=== PATIENT | male | born 1945 | race Caucasian/White ===

== ENCOUNTER → 2020-07-13 | Day surgery (SDC) | payer MEDICARE, OTHER ==
[~2020-07-13] VITALS: Ht 180 cm; Wt 93.0 kg
[~2020-07-13] MED LIST: ASPIRIN EC81 MG PO; CERTAGEN1 EACH PO; FEOSOL325 MG PO; GLUCOSAMINE CO1 EACH PO; LAXATIVE OF CHOICE; LIPITOR 10MG TA10 MG PO; MOBIC15 MG PO; MOBIC7.5 MG PO; NASACORT16.9 ML; NORCO 5-325 TA1 EACH PO; NORVASC2.5 MG PO; PLAVIX75 MG PO; PRILOSEC20 MG PO; ULTRAM50 MG PO; XARELTO10 MG PO; ZESTORETIC 20-1 EACH PO
== END | disposition home or self-care (01) ==
LOC: FAS 12:43
DX: H26.491 Other secondary cataract, right eye (principal); I10 Essential (primary) hypertension; M19.90 Unspecified osteoarthritis, unspecified site

== ENCOUNTER → 2020-08-10 | Day surgery (SDC) | payer MEDICARE, OTHER ==
[~2020-08-10] VITALS: Ht 180 cm; Wt 93.0 kg
[~2020-08-10] MED LIST changes: -NORCO 5-325 TA1 EACH PO
== END | disposition home or self-care (01) ==
LOC: FAS 13:17
DX: H26.492 Other secondary cataract, left eye (principal); M19.90 Unspecified osteoarthritis, unspecified site; I10 Essential (primary) hypertension; Z79.82 Long term (current) use of aspirin; Z79.02 Long term (current) use of antithrombotics/antiplatelets; Z79.899 Other long term (current) drug therapy

== ENCOUNTER → 2020-11-13 | Day surgery (SDC) | payer MEDICARE, OTHER ==
[~2020-11-13] VITALS: Ht 178 cm; Wt 92.5 kg
[~2020-11-13] MED LIST changes: +NORCO 5-325 TA1 EACH PO
== END | disposition home or self-care (01) ==
LOC: FAS 06:02
DX: M24.662 Ankylosis, left knee (principal); G89.18 Other acute postprocedural pain; I10 Essential (primary) hypertension; I25.10 Atherosclerotic heart disease of native coronary artery without angina pectoris; E78.5 Hyperlipidemia, unspecified; Z96.652 Presence of left artificial knee joint; Z88.5 Allergy status to narcotic agent; Z79.82 Long term (current) use of aspirin; Z79.02 Long term (current) use of antithrombotics/antiplatelets; Z79.899 Other long term (current) drug therapy
CPT/HCPCS: J2704; J3010; J7120